=== PATIENT | female | born 2000 | race Caucasian/White ===

== ENCOUNTER 2025-06-07 11:32 | Emergency (ER) | payer MEDICAID, SELFPAY ==
[2025-06-07 11:37] VITALS: BP 133/64; PULSE 89; RESP 16; TEMP 36.6; O2SAT 100
--- NOTE | 2025-06-07 12:33 | ED.DENTAL ---
HPI - Dental/Oral General Chief complaint: Dental/Oral Stated complaint: dental pain Time Seen by Provider: 06/07/25 12:12 Source: patient and family ([id number]) Mode of arrival: ambulatory Limitations: no limitations History of Present Illness HPI Narrative: Patient presents with left sided mouth/jaw pain that started the day before yesterday. She has a known cavity in her wisdom tooth but only recenty moved to the area and doesn't have a dentist here yet. Pain seems like it is both in upper left wisdom tooth but also lower left wisdom tooth. Pain seems to radiate to the left ear. No sore throat. Concerned for left sided facial swelling. Took 500mg Tylenol this morning and 200mg Aleve. Pain is worse at night and in the morning, seems to occur every 2 minutes. Cold water helps. No fevers/chills. No drainage. Related Data Allergies Allergy/AdvReac Type Severity Reaction Status Date / Time No Known Allergies Allergy Verified 06/07/25 11:40 [facility] Social History Social History (Updated 06/07/25 @ 13:48 by Iris Azevedo MD) Living arrangements: with family Additional living arrangements comments: 2 children Exam Narrative: GENERAL: Well-appearing, well-nourished, and in no acute distress. HEAD: Normocephalic, atraumatic. EYES: Non injected, non icteric ENT: Nares clear, no rhinorrhea or epistaxis. Gross auditory acuity intact. Very mild facial swelling, barely appreciable. No induration. Fracture and cavity of tooth #16, cavity of tooth #17. neither of which are tender to percussion. Adjacent gums and buccal mucosa without tenderness. No drainage. Uvula midline. No appreciable abscess. No trismus. NECK: Supple. No meningismus. CHEST: Speaking in full sentences. No respiratory distress. HEART: Regular rate and rhythm. . ABDOMEN: Soft, nondistended. EXTREMITIES: Normal range of motion. No lower extremity edema. SKIN: Warm, dry, no rash. NEURO: No focal deficits. Alert and oriented. Answering questions. Following commands. Normal speech without aphasia or dysarthria. PSYCH: Normal mood and affect. Course Vital Signs Vital signs: Vital Signs Temperature 97.8 F 06/07/25 11:37 Pulse Rate 89 06/07/25 11:37 Respiratory Rate 16 06/07/25 11:37 Blood Pressure 133/64 06/07/25 11:37 Pulse Oximetry 100 06/07/25 11:37 Oxygen Delivery Room Air 06/07/25 11:37 Temperature 97.8 F 06/07/25 11:37 Pulse Rate 89 06/07/25 11:37 Respiratory Rate 16 06/07/25 11:37 Blood Pressure 133/64 06/07/25 11:37 Pulse Oximetry 100 06/07/25 11:37 Oxygen Delivery Room Air 06/07/25 11:37 Procedures Nerve Block Nerve Block 1: Nerve block date: 06/07/25 Nerve block time: 13:40 Local Anesthetic: bupivacaine 0.5% Amount of anesthesia used (mL): 1.5 Side: left Intraoral Nerve Block: superior alveolar (posterior) Procedure Successful: Yes Patient Tolerated Procedure: well and no complications Complications: none Nerve Block 2: Nerve block date: 06/07/25 Nerve block time: 13:42 Local Anesthetic: bupivacaine 0.5% Amount of anesthesia used (mL): 3 Side: left Intraoral Nerve Block: inferior alveolar Procedure Successful: Yes Patient Tolerated Procedure: well and no complications Complications: none MDM - Dental/Oral MDM Narrative Medical decision making narrative: Exceedingly pleasant Patient presents with report of dental pain, in particular teeth# 16 and 17 In the emergency department they are afebrile with vital signs within normal limits. Patient amenable to both oral analgesic med and nerve blocks, aware she will need 2 based on locations of pain. In advance, Reviewed: 26.6?mL Max allowable subQ dose of 0.5% bupivacaine (without epi) in a 67-kg patient (133.2 mg bupivacaine) == Posterior superior alveolar nerve block and inferior alveolar nerve block performed as above. Patient experiencing relief of pain. No evidence of infection but, as preventative measure, antibiotics. Given dental resources and advised follow up [facility]. She verifies understanding and is in agreement. Differential Diagnosis Differential diagnosis: Likely gingival abscess, dental caries, toothache, dental abscess and fracture of tooth Discharge Plan Discharge Clinical Impression: Toothache, Dental caries Patient Disposition: Home Condition: Stable Instructions: Antibiotic Form, Cavity Preventive (For the teeth or gums), Toothache (ED) Additional Instructions: 2 nerve blocks were performed. The medication effects from this should last between 2-5 hours. Take the course of antibiotics prescribed although no evidence of infection at this time. You received your 1st dose in the emergency department. Follow-up with a dentist. You are being given a list of dental resources. Acetaminophen/Tylenol (maximum 4000 mg per day) is safe to take with NSAIDs (ibuprofen/Motrin) for pain relief. If you also need a primary care physician because you are new to the area, the name of the doctors listed below. Patient Language: [place] Island[place] Prescriptions: New amoxicillin-pot clavulanate 875-125 mg tablet 1 tablet PO Q12H 7 Days Qty: 13 0RF Rx Instructions: rec'd first dose in ED 06/07 Follow-up/Referrals: PHYSICIAN,[facility] [Primary Care Provider, Internal Medicine] Afsaneh Santos DO [Physician, Family Practice] Stand Alone Forms: Work/School Release IP Time of Disposition: 13:48
[2025-06-07] MEDS: HYDROcodone/acetaminophen (*CRX) 5-325 MG TABLET 1 TAB PO (12:54)
== END 2025-06-07 14:05 | disposition home or self-care (01) ==
PROVIDERS: Emergency Provider Student in an Organized Health Care Education/Training Program
DX: K02.9 Dental caries, unspecified (principal); K08.89 Other specified disorders of teeth and supporting structures
CPT/HCPCS: 64400; 99283; A9270